=== PATIENT | female | born 1990 | race Caucasian/White ===

== ENCOUNTER → 2021-07-19 | Outpatient (CLI) | payer OTHER ==
[~2021-07-19] MED LIST: ALPR0.5T PO; BENA10TA55 PO; BUSP15TA PO; CYCL10TA2 PO; IBUP-1027 PO; LAMO100T5 PO; QUET200T4 PO; TRAM100T2 PO; [UNRECOGNIZED DRUG - OTHER]
--- NOTE | 2021-07-19 12:58 | PDOC1 ---
INITIAL PAIN CONSULT DATE OF SERVICE: DOS: DATE: 07/19/21 TIME: 12:52 CHIEF COMPLAINT: Chief Complaint: Low back and left lower extremity pain HISTORY OF PRESENT ILLNESS: 30-year-old female presents history of pain low back left lower extremity since age 16 much worse over the past year or so, not result of any specific injury or accident, recently but is had multiple injuries in the past and sporting injur ies as well. Patient reports pain is in the low back left lower extremity posterior gluteus lateral thigh anterior thigh medial thigh medial lower leg as well as into the calf and into the foot on the left side worse with walking standing changing positions better with sitting but only for about 20 to 30 minutes then the pain returns patient reports it wakes her from sleep occasio tayler but not every night does not affect her bowel bladder control but does affect her ability to walk where she is using a electric scooter when she goes to a larger department store. Patient reports she has had physical therapy over the past 6 months and is still doing the exercises and strengthening stretching exercises at home and using elliptical machine to exercise daily. Patient has epidural steroid injections in the past about 12 years ago with good results as well. Patient has tried tramadol Flexeril as well as prednisone all of which decrease the pain but only minimally patient did have a steroid pack which made her very hyperactive. Patient rates her disability rating 0-10 10 being worst is a 4 with family home responsibilities and recreation 1 with social activity 7 with sexual behavior 5 with occupation 5 with self-care and 1 with life support activities. Patient did have an MRI scan lumbar spine showing L4-5 broad-based disc protrusion and annular fissure resulting in narrowing of the subarticular zones dysmaturation contacting traversing L5 nerve roots bilaterally with mild right foraminal narrowing. PAST MEDICAL HISTORY: PMH: Hypertension, cigarette smoking quit 15 years ago PREVIOUS SURGERIES: Past Surgical Hx: [place] teeth extraction, ORIF left ankle, hardware removal from left ankle, bunionectomy CURRENT MEDICATIONS: Current Meds: Active Scripts Medications Dose Route/Sig Max Daily Dose Days Date Category [vitamin B, E,tumeri] 07/19/21 Reported Ibuprofen 400 Mg Tablet 400 Mg PO PRN Q6HRS PRN 07/19/21 Reported Tramadol Hcl 100 Mg Tbmp.24hr 1 Tab PO PRN DAILY PRN MDD 1 Tablet(s) 30 07/19/21 Reported Cyclobenzaprine Hcl 10 Mg Tablet 1 Tab PO TID 07/19/21 Reported Xanax (Alprazolam) 0.5 Mg Tablet 1 Tab PO DAILY 07/19/21 Reported Benazepril Hcl 10 Mg Tablet 10 Mg PO DAILY 07/19/21 Reported Buspirone Hcl 15 Mg Tablet 1 Tab PO BID 07/19/21 Reported Lamictal (Lamotrigine) 100 Mg Tablet 75 Mg PO BID 07/19/21 Reported Seroquel (Quetiapine Fumarate) 200 Mg Tablet 1 Tab PO QHS 07/19/21 Reported ALLERGIES; Allergies: Coded Allergies: topiramate (Verified Allergy, Intermediate, hives, 07/19/21) FAMILY HISTORY: Family Hx: Heart disease, diabetes, strokes, bipolar disorder, hypertension, cancers SOCIAL HISTORY: Social Hx: Patient drinks alcohol about once a month does not smoke anymore she quit 15 years ago does not use any illegal illicit recreational drugs is single lives locally in [facility] and 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 PHYSICAL EXAM: VS: Blood pressure is 115/65 pulse 84 respirations 18 temperature 90.4 F height is 5 feet 4 inches weight is 181 pounds PE: PHYSICAL EXAMINATION: GENERAL: The patient is awake, alert, oriented, appropriate, very pleasant in demeanor HEENT: Shows normocephalic, atraumatic. Extraocular movements are intact and symmetrical. Oral cavity: Mucous membranes moist and pink. Dentition is intact. NECK: Shows anterior throat supple without palpable lymphadenopathy noted. Swallow reflex symmetrical. CHEST: Shows normal on inspection. Breath sounds are clear bilaterally, distant but no rales rhonchi wheezes auscultated. HEART: Shows S1, S2 clear. No murmurs auscultated. ABDOMEN: Soft, nontender, nondistended, obese. No palpable organomegaly is noted. BACK: Shows spine grossly in the midline. Normal-appearing cervical lordotic curvature. There is mildly increased thoracic kyphosis, some minor flattening of the lumbar lordotic curvature. Lumbar paraspinous muscles show symmetrical on inspection, on palpation shows some moderate tenderness diffusely throughout the upper, middle and lower distribution of the paraspinous muscles bilaterally and also into the lower thoracic paraspinous musculature, firm and tender, but without specific trigger points, without radiation of pain. The patient has good rotational motion of the lumbar spine, both laterally as well as extension and flexion without significant difficulty. No tenderness over the spinous processes, sacrum or sacroiliac regions. EXTREMITIES: Lower extremities show deep tendon reflexes 2+ in the patellar and tendo calcaneus tendons. Motor exam is 5 on a scale of 5 with right dorsiflexion, extension, quadriceps and hamstring flexion and 4/5 on the left. Peripheral pulses are 1+ posterior tibial. No peripheral edema is noted bilaterally. Lower extremities are warm and dry to touch, equal in color and appearance. Straight leg raise noted to be positive on the left at approximate 45 degrees but decreased with knee flexion, right side is negative. Gaenslen's and Johnson's maneuvers are negative bilaterally. The patient is able to stand, stand on her toes without significant difficulty or loss of balance walks with a slight favoring gait does appear to favor the left lower extremity but not use any assistive device such as canes or walkers to ambulate. SKIN: Shows warm and dry, good turgor. No edema. No sores, rashes or bruising throughout. IMPRESSION: Impression: 30-year-old female with long history low back left lower extremity pain and radicular fashion following L4-5 dermatomal distribution. MRI lumbar spine as noted Hypertension Plan: Options were discussed with the patient could exert medical managements continue physical therapy interventional techniques. Patient is doing physical therapy and exercises currently as well as using oral analgesics without significant reduction in pain, patient elected pursue interventional techniques. We discussed a lumbar epidural steroid injections description as well as anatomical models to describe the procedure. Patient will wait for preauthorization with her insurance provider, once this is obtained we will have her return for a translaminar approach L4-5 level lumbar epidural steroid injection with fluoroscopic guidance. In the meantime, patient will continue with stretching strength exercise as well as oral analgesics as currently. LEO GARNICA MD Jul 19, 2021 12:58
== END | disposition home or self-care (01) ==
LOC: PNCL 11:13
PROVIDERS: ATTEND Anesthesiology
DX: M54.59 Other low back pain (principal); M79.605 Pain in left leg; I10 Essential (primary) hypertension; Z87.891 Personal history of nicotine dependence; Z79.899 Other long term (current) drug therapy; Z98.890 Other specified postprocedural states; Z82.49 Family history of ischemic heart disease and other diseases of the circulatory system; Z83.3 Family history of diabetes mellitus
CPT/HCPCS: 99205; G0463

== ENCOUNTER → 2021-08-16 | Outpatient (CLI) | payer OTHER ==
[~2021-08-16] MED LIST changes: +CYCL10TA19 PO; -CYCL10TA2 PO; +IOHEXOL 180 MG/ML 10 ML VIAL. ONE; +methylPREDNISolone ACETATE 40 MG/ML VIAL. ONE; +methylPREDNISolone ACETATE 80 MG/ML VIAL. ONE
--- NOTE | 2021-08-16 10:43 | PDOC ---
Progress Note - Pain Clinic Date of Service: DOS: DATE: 08/16/21 TIME: 10:39 Diagnosis: Dx: Lumbar radiculopathy with lumbar degenerative disease and lumbar spinal stenosis History or Present Illness: HPI: 30-year-old female returns for follow-up with complaints of low back and left lower extremity pain now in both of the lower extremities which is new for her as well as mostly in the back patient reports it was just her left leg that was painful but now as well as the low back with relief also patient reports weakness and numbness in both of the legs now rated a 5 on a scale of 10 is worse over the past week 3 on average 1 its least as of 3 today. Patient reports is worse with walking standing changing positions better with sitting or laying down patient reports generally does not awaken her from sleep at night however. Patient reports no bowel or bladder incontinence but does report significant fatigability of the lower extremities bilaterally with ambulation standing and walking. Physical Exam: VS: Blood pressure is 116/73 pulse 64 respirations 16 temperature is 98.4 F weight 185 pounds PE: PHYSICAL EXAMINATION: GENERAL: The patient is awake, alert, oriented, appropriate, very pleasant in demeanor HEENT: Shows normocephalic, atraumatic. Extraocular movements are intact and symmetrical. Oral cavity: Mucous membranes moist and pink. Dentition is intact. NECK: Shows anterior throat supple without palpable lymphadenopathy noted. Swallow reflex symmetrical. CHEST: Shows normal on inspection. Breath sounds are clear bilaterally, distant but no rales or rhonchi. HEART: Shows S1, S2 clear. No murmurs auscultated. ABDOMEN: Soft, nontender, nondistended, obese. No palpable organomegaly is noted. BACK: Shows spine grossly in the midline. Normal-appearing cervical lordotic curvature. There is increased thoracic kyphosis, some flattening of the lumbar lordotic curvature. Lumbar paraspinous muscles show symmetrical on inspection, on palpation shows some moderate tenderness diffusely throughout the upper, middle and lower distribution of the paraspinous muscles without specific trigger points, without radiation of pain. The patient has good rotational motion of the lumbar spine, both laterally as well as extension and flexion without significant difficulty. EXTREMITIES: Lower extremities show deep tendon reflexes 2+ in the patellar and tendo calcaneus tendons. Motor exam is 5 on a scale of 5 with right dorsiflexion, extension, quadriceps and hamstring flexion and 4/5 on the left. Peripheral pulses are 1+ posterior tibial. No peripheral edema is noted bilaterally. Lower extremities are warm and dry. SKIN: Shows warm and dry, good turgor. No edema. No sores, rashes or bruising throughout. Procedure: Procedure: Options were discussed with the patient. Patient chart reviews her current medication regimen updated current review of systems updated today as well. We will proceed with a lumbar epidural steroid injection today with fluoroscopic guidance. Risks were discussed including but not limited to: Bleeding, infection, possibility of epidural hematoma and subsequent neurological compromise, dural puncture, headaches, spinal cord and/or nerve damage, side effects of steroid medication, and poor results regarding pain control. Patient understands and wished to proceed. She will return to clinic in approximate 2 weeks for follow-up, was counseled as to return appointment activity level and side effects to be aware of. Medication Injected: Med Injected: Procedure is lumbar epidural steroid injection under local anesthetic using s terile prep and drape at the L4-5 level using C-arm fluoroscopic guidance in both AP and lateral views medications injected is 120 mg Depo-Medrol +10mL preservative-free normal saline and 2 mL contrast- condition at discharge is stable patient tolerated procedure well had no complications. Condition at Discharge: Condition at Discharge: Condition at discharge is stable, patient tolerated the procedure well and had no complications. LEO GARNICA MD Aug 16, 2021 10:43
--- NOTE | 2021-08-16 10:44 | PDOC4 ---
Procedure Note: ICD 10 Code: ICD 10 Code: M54.16 M51.36 M4 8.06 Procedure Note: Patient was consented for lumbar epidural steroid injection with fluoroscopic guidance risks were discussed including but not limited to: Bleeding, infection, possibility of epidural hematoma and subsequent neurological compromise, dural puncture, headaches, spinal cord and/or nerve damage, side effects of steroid medication, and poor results regarding pain control. Patient understands and wished to proceed. Procedure is lumbar epidural steroid injection under local anesthetic using sterile prep and drape at the L4-5 level using C-arm fluoroscopic guidance in both AP and lateral views medications injected is 120 mg Depo-Medrol +10mL preservative-free normal saline and 2 mL contrast- condition at discharge is stable patient tolerated procedure well had no complications. LEO GARNICA MD Aug 16, 2021 10:44
== END | disposition home or self-care (01) ==
LOC: PNCL 10:18
PROVIDERS: ATTEND Anesthesiology
DX: M51.16 Intervertebral disc disorders with radiculopathy, lumbar region (principal); M48.061 Spinal stenosis, lumbar region without neurogenic claudication; G89.29 Other chronic pain
CPT/HCPCS: 62323; J1030; J1040; Q9965